=== PATIENT | male | born 1980 | race American Indian/Alaskan Native ===

== ENCOUNTER 2017-03-02 06:30 | Emergency (ER) | payer MEDICAID ==
[2017-03-02 06:40] VITALS: BP 123/77
--- NOTE | 2017-03-02 07:24 | EDM.PDOC ---
ED HPI GENERAL MEDICAL PROBLEM - General Chief Complaint: Back Pain or Injury Stated Complaint: BACK PAIN Time Seen by Provider: 03/02/17 07:03 Source of Information: Reports: Patient, RN Notes Reviewed - History of Present Illness INITIAL COMMENTS - FREE TEXT/NARRATIVE: 36-year-old male injured his back last evening. He was twisting turning and felt sudden onset of pain right lower back. That continues this morning. He has mild discomfort at rest but more severe pain and spasms with motion. Pain does not go down into the leg. No fall or blow to the back. No other unusual symptomatology Middle Back Pain Score (Numeric/FACES): 7 - Related Data Allergies Allergy/AdvReac Type Severity Reaction Status Date / Time aspirin Allergy Nausea Verified 03/02/17 06:40 Home Meds: Home Meds . [No Known Home Meds] 03/02/17 [History] Past Medical History - Past Health History Medical/Surgical History: Denies Medical/Surgical History Social & Family History - Tobacco Use Smoking Status *Q: Never Smoker - Caffeine Use Caffeine Use: Reports: Soda - Recreational Drug Use Recreational Drug Use: No ED ROS GENERAL - Review of Systems Review Of Systems: See Below Constitutional: Reports: No Symptoms HEENT: Reports: No Symptoms Respiratory: Denies: Shortness of Breath, Pleuritic Chest Pain Cardiovascular: Denies: Chest Pain GI/Abdominal: Denies: Abdominal Pain, Nausea, Vomiting : Reports: No Symptoms Musculoskeletal: Reports: Back Pain. Denies: Joint Pain Skin: Reports: No Symptoms Neurological: Denies: Numbness, Tingling ED EXAM,LOWER BACK PAIN/INJURY - Physical Exam Exam: See Below General Appearance: Alert, Mild Distress Throat/Mouth: Normal Inspection Head: Atraumatic Neck: Supple, Full Range of Motion Respiratory/Chest: No Respiratory Distress, Lungs Clear, Normal Breath Sounds Cardiovascular: Regular Rate, Rhythm Back Exam: Paraspinal Tenderness. No: Normal Inspection, CVA Tenderness (L) Extremities: Normal Inspection (Right low back), Normal Range of Motion Neurological: Alert, No Motor/Sensory Deficits, Other (No pain with straight leg raising) Skin Exam: Warm, Dry, Normal Color Course - Vital Signs Last Recorded V/S: Last Vital Signs Temp 97.4 F 03/02/17 06:35 Pulse 50 L 03/02/17 06:35 Resp 16 03/02/17 06:35 BP 123/77 03/02/17 06:35 Pulse Ox 98 03/02/17 06:35 Departure - Departure Time of Disposition: 07:20 Disposition: Home, Self-Care 01 Condition: Fair Clinical Impression: Back strain Qualifiers: Encounter type: initial encounter Qualified Code(s): S39.012A - Strain of muscle, fascia and tendon of lower back, initial encounter - Discharge Information Instructions: Mid-Back Strain With Rehab-SportsMed Referrals: Miriam Perez PA-C [Primary Care Provider] - Forms: ED Department Discharge Additional Instructions: rest back, avoid heavy lifting until discomfort resolving. alternate ice and heat as needed, naprosyn 500 mg twice daily with food, tylenol up to 3 times daily for extra pain relief. Flexeril as needed for muscle spasm and for muscle relaxation. Follow up clinic or Occupational Health if not much better within 2 to 3 days as expected.
== END 2017-03-02 08:10 | disposition home or self-care (01) ==
LOC: JD.ED 06:30
DX: S39.012A Strain of muscle, fascia and tendon of lower back, initial encounter (principal); Z88.6 Allergy status to analgesic agent; X50.9XXA Other and unspecified overexertion or strenuous movements or postures, initial encounter
CPT/HCPCS: 99283

== ENCOUNTER 2017-08-12 11:11 | Day surgery (SDC) | payer MEDICAID ==
[2017-08-12] MEDS ORDERED: Sodium Chloride 0.9% 10 ML Syringe FLUSH PRN (11:31)
[2017-08-12] MEDS ORDERED: Lidocaine 1%/Sod Bicarbonate in NS 8.4% 1 ML Syringe IV PRN (11:31)
[2017-08-12] MEDS ORDERED: Lactated Ringers 1,000 ML IV SCH (11:45)
[2017-08-12] MEDS ORDERED: Iopamidol 612 MG/ML 50 ML SDV ONE (11:54)
[2017-08-12] MEDS ORDERED: Sodium Chloride 0.9% 50 ML SDV ONE (11:54)
[2017-08-12] MEDS ORDERED: Bupivacaine 0.5% 30 ML SDV ONE (11:54)
--- NOTE | 2017-08-12 12:23 | PCM.PREANE ---
Preanesthetic Assessment - Anesthesia/Transfusion/Family Hx Anesthesia History: No Prior Anesthesia Family History of Anesthesia Reaction: No Transfusion History: No Prior Transfusion(s) - Review of Systems General: No Symptoms Pulmonary: No Symptoms Cardiovascular: No Symptoms Gastrointestinal: Abdominal Pain Neurological: No Symptoms Other: Reports: None - Physical Assessment NPO Status Date: 08/11/17 NPO Status Time: 00:00 Pulse: 69 O2 Sat by Pulse Oximetry: 94 Respiratory Rate: 16 Blood Pressure: 137/78 Temperature: 36.9 C Height: 1.75 m Weight: 113 kg ASA Class: 2 Mental Status: Alert & Oriented x3 Dentition: Reports: Broken Tooth/Teeth (right side top) Thyro-Mental Finger Breadths: 3 Mouth Opening Finger Breadths: 3 ROM/Head Extension: Full Lungs: Clear to Auscultation, Normal Respiratory Effort Cardiovascular: Regular Rate, Regular Rhythm - Allergies Allergies/Adverse Reactions: Allergies Allergy/AdvReac Type Severity Reaction Status Date / Time aspirin Allergy Nausea Verified 03/02/17 06:40 - Anesthesia Plan Pre-Op Medication Ordered: None - Acknowledgements Anesthesia Type Planned: General Anesthesia Pt an Appropriate Candidate for the Planned Anesthesia: Yes Alternatives and Risks of Anesthesia Discussed w Pt/Guardian: Yes Pt/Guardian Understands and Agrees with Anesthesia Plan: Yes PreAnesthesia Questionnaire - Past Health History Medical/Surgical History: Denies Medical/Surgical History Gastrointestinal History: Reports: GERD - SUBSTANCE USE Smoking Status *Q: Former Smoker Tobacco Use Within Last Twelve Months: Cigarettes Second Hand Smoke Exposure: No Days Per Week of Alcohol Use: 1 Number of Drinks Per Day: 0 Total Drinks Per Week: 0 Recreational Drug Use History: No - HOME MEDS Home Medications: Home Meds . [No Known Home Meds] 03/02/17 [History] - CURRENT (IN HOUSE) MEDS Current Meds: Current Medications Lactated Ringer's (Ringers, Lactated) 1,000 mls @ 125 mls/hr IV ASDIRECTED NELLIE Stop: 08/12/17 23:00 Lidocaine/Sodium Bicarbonate (Buffered Lidocaine 1% In Ns 8.4%) 0.25 ml IV ONETIME PRN PRN Reason: Prior to IV Start Stop: 08/12/17 18:00 Sodium Chloride (Saline Flush) 10 ml FLUSH ASDIRECTED PRN PRN Reason: Keep Vein Open Stop: 08/12/17 18:00 Discontinued Medications Bupivacaine HCl (Marcaine 0.5%) Confirm Administered Dose 30 ml .ROUTE .STK-MED ONE Stop: 08/12/17 11:55 Iopamidol (Isovue-300 (61%)) Confirm Administered Dose 50 ml .ROUTE .STK-MED ONE Stop: 08/12/17 11:55 Sodium Chloride (Normal Saline) Confirm Administered Dose 100 ml .ROUTE .STK- MED ONE Stop: 08/12/17 11:55
[2017-08-12] MEDS ORDERED: Ondansetron 4 MG/2 ML SDV ONE (12:47)
[2017-08-12] MEDS ORDERED: Midazolam 1 MG/ML 2 ML SDV ONE (12:47)
[2017-08-12] MEDS ORDERED: fentaNYL 250 MCG/5 ML SDV ONE (12:47)
[2017-08-12] MEDS ORDERED: Lidocaine 1% 4 ML ONE (12:47)
[2017-08-12] MEDS ORDERED: Rocuronium 50 MG/5 ML Vial ONE (12:47)
[2017-08-12] MEDS ORDERED: Propofol 200 MG/20 ML SDV ONE (12:47)
[2017-08-12] MEDS ORDERED: ceFAZolin 1 GM Vial ONE (12:48)
[2017-08-12] MEDS ORDERED: HYDROmorphone 1 MG/ML Syringe ONE (14:17)
[2017-08-12] MEDS ORDERED: Dexamethasone 4 MG/ML 5 ML MDV ONE (14:23)
[2017-08-12] MEDS ORDERED: Lactated Ringers 1,000 ML ONE (14:45)
[2017-08-12] MEDS ORDERED: fentaNYL 100 MCG/2 ML SDV ONE (15:08)
--- NOTE | 2017-08-12 15:38 | PCM.OPNOTE ---
- General Post-Op/Procedure Note Date of Surgery/Procedure: 08/12/17 Operative Procedure(s): lap gera with ioc Pre Op Diagnosis: cholelithiasis Post-Op Diagnosis: Same Anesthesia Technique: General ET Tube Primary Surgeon: Ralph Benedict EBL in mLs: 15 Complications: None Condition: Good
[2017-08-12] MEDS ORDERED: fentaNYL 250 MCG/5 ML SDV IVPUSH PRN (15:46)
[2017-08-12] MEDS ORDERED: HYDROmorphone 0.5 MG/0.5 ML Syringe IVPUSH PRN (15:46)
--- NOTE | 2017-08-12 15:48 | PCM.POSTAN ---
POST ANESTHESIA ASSESSMENT - MENTAL STATUS Mental Status: Somnolent - VITAL SIGNS Pulse Rate: 82 SaO2: 91 Resp Rate: 18 Blood Pressure: 144/91 Temperature: 37.7 C - RESPIRATORY Respiratory Status: Respiratory Rate WNL, Airway Patent, O2 Saturation Stable, Supplemental Oxygen - CARDIOVASCULAR CV Status: Pulse Rate WNL, Blood Pressure Stable - GASTROINTESTINAL GI Status: No Symptoms - PAIN Pain Score: 0 - POST OP HYDRATION Hydration Status: Adequate & Stable - OBSERVATIONS Free Text/Narrative:: no anesthesia complications noted
[2017-08-12] MEDS ORDERED: Acetaminophen/oxyCODONE 325-5 MG Tab PO PRN (16:51)
[2017-08-12 17:47] VITALS: BP 134/84
--- NOTE | 2017-08-13 06:44 | OR ---
DATE OF OPERATION: 08/12/2017 SURGEON: Ralph Benedict MD PREOPERATIVE DIAGNOSIS: Cholelithiasis. POSTOPERATIVE DIAGNOSIS: Cholelithiasis. OPERATION PERFORMED: Laparoscopic cholecystectomy, intraoperative cholangiogram done under general anesthetic. ESTIMATED BLOOD LOSS: 15 mL. FINDINGS: Stones in the gallbladder, common duct. Intraoperative cholangiogram showed dye running into the duodenum without obstruction of the right and left hepatic duct and normal common duct with no leakage. DESCRIPTION OF PROCEDURE: The patient was taken to the operating room, placed in a supine position, given a general anesthetic and intubated. Antibiotics were given. SCDs were placed. The abdomen was prepped with chlorhexidine, prepped and draped off in a sterile fashion. Incision was made just below the umbilicus, and using an Optiport, the abdominal cavity was entered. A 5 mm trocar was used and pneumoperitoneum established and a 0 degree camera was inserted showing a gallbladder in the right upper quadrant, but the angle was not sufficient to really safely do a gallbladder. This was corrected by first putting the epigastric port and using a 10 mm port, then looking backwards with our camera, put a port higher up in the midline. Another 5 mm port was placed in the right upper quadrant and one in the right lower quadrant. Using a 0 degree camera at first, the fundus of the gallbladder was retracted in a cephalad way. The patient replaced in reverse Trendelenburg, leftward tilt and Telly pouch was dissected out. We retracted in a caudal fashion. This 0 degree camera was then changed out for a 30 degree 5 mm camera which gave a better view and the cystic duct Telly pouch junction was identified. This was secured with a clip. An incision was made in the cystic duct and a cholangiocatheter was then placed and secured with clips and a cholangiogram was then obtained using contrast material diluted with equal parts of saline, and on the C-arm, this showed the above findings. Cholangiocatheter was removed. Two clips were placed in the cystic duct. The cystic duct was cut. Attempt to place an Endoloop on this were not successful. Gallbladder was then dissected from its attachments to the liver with electrocautery and placed in the Endobag and removed from the abdominal cavity. Camera was reinserted. The area was irrigated and checked, excellent hemostasis. This completed the intraabdominal portion of the procedure. The skin of each port closed with subdermal 4-0 Dexon suture. Steri-Strips and sterile dressing placed. The patient tolerated the procedure and sent to the recovery room in a stable condition. ANESTHESIA: MMISH /[id number]
--- NOTE | 2017-08-13 07:31 | CR ---
Operative cholangiogram: Single spot view was obtained during operative cholangiogram study. No gross filling defects are seen. Caliber of the ducts appear normal. Impression: 1. Single fluoroscopic spot view shows no discrete abnormality on operative cholangiogram study. Please correlate with findings on fluoroscopic exam. Diagnostic code #1
== END 2017-08-12 18:10 | disposition home or self-care (01) ==
LOC: JD.SDS 11:11
PROVIDERS: ATTEND Surgery
DX: K80.10 Calculus of gallbladder with chronic cholecystitis without obstruction (principal); Z88.8 Allergy status to other drugs, medicaments and biological substances; F17.210 Nicotine dependence, cigarettes, uncomplicated
CPT/HCPCS: 47563; 74300; J0690; J1100; J1170; J2250; J2405; J3010; J7120; Q9967; 00790; J2704

== ENCOUNTER 2024-06-05 09:41 | Inpatient (IN) | payer MEDICAID, OTHER ==
[2024-06-05] MEDS: Sodium Chloride 0.9% 10 ML Syringe FLUSH PRN (10:31)
[2024-06-05] MEDS: Sodium Chloride 0.9% 1,000 ML IV ONE ×3 (10:31→12:59)
[2024-06-05 10:41] LABS: HEMATOCRIT 51.3 % (42.0-52.0); MEAN CORPUSCULAR HGB CONC 33.1 g/dl (32.0-36.0); MEAN CORPUSCULAR VOLUME 81.4 fl (83.0-99.0); NRBC ABSOLUTE 0.04 (0.00-0.02); NRBC PERCENT 0.3 % (0.0-0.2); PLATELET COUNT,PLT 483 K/mm3 (150-400)
[2024-06-05 10:48] LABS: INR 0.99; PROTHROMBIN TIME 10.5 SECONDS (9.7-12.0)
[2024-06-05 10:58] LABS: A/G RATIO 0.9 (1-2); BILIRUBIN TOTAL 0.7 mg/dL (0.2-1.0); BUN/CREATININE RATIO 14.7 (14-18); C-REACTIVE PROTEIN 13.11 mg/dL (<0.30); CALCIUM 9.6 mg/dL (8.5-10.1); EST CRCL DRUG DOSING (CG) 31.42 mL/min; POTASSIUM,K 5.6 mEq/L (3.5-5.1); PROTEIN TOTAL,TP 8.7 g/dl (6.4-8.2)
[2024-06-05 11:21] LABS: BAND PERCENT MAN 4 % (0-10); BASOPHILS PERCENT MAN 0 (0.2-1.2); EOSINOPHILS PERCENT MAN 1 % (0.8-7.0); LYMPHOCYTES % ATYPICAL MANUAL 0 %; LYMPHOCYTES PERCENT MAN 1 % (20-40); MONOCYTES PERCENT MAN 2 % (2-10)
[2024-06-05] MEDS: cefTRIAXone 2 GM in Sodium Chloride 0.9% 100 ML IV ONE (11:22)
[2024-06-05 11:23] LABS: PLATELET COUNT ESTIMATE INCREASED
[2024-06-05] MEDS: Iopamidol 612 MG/ML 100 ML Bottle IVPUSH ONE (11:23)
[2024-06-05 11:25] LABS: ANION GAP 38.6 (5-15); LACTIC ACID 5.5 mmol/L (0.4-2.0)
[2024-06-05] MEDS: Insulin Regular in 0.9 % NACL 100 ML IV SCH (11:36)
[2024-06-05] MEDS: Sodium Bicarbonate 8.4% 50 MEQ/50 ML Syringe IVPUSH ONE (12:27)
[2024-06-05 12:34] LABS: APPEARANCE,URINE CLEAR (Clear); BILIRUBIN,URINE 1+ (Negative); COLOR,URINE YELLOW (Yellow); GLUCOSE,URINE 2+ (Negative); KETONES,URINE 4+ (Negative); LEUKOCYTE ESTERASE,URINE NEGATIVE (Negative); NITRITE,URINE NEGATIVE (Negative); OCCULT BLOOD,URINE 2+ (Negative); PROTEIN,URINE 2+ (Negative); UROBILINOGEN,URINE 0.2 (0.2-1.0)
[2024-06-05 13:01] LABS: BACTERIA,URINE NOT SEEN /hpf (FEW); MUCUS,URINE NOT SEEN /hpf (FEW); SQUAMOUS EPITHELIAL CELLS,UR 0-5 /hpf (0-5); WBC,URINE 0-5 /hpf (0-5)
[2024-06-05] MEDS: Sodium Chloride 0.9% 1,000 ML IV SCH (13:37)
[2024-06-05 14:13] LABS: CALCIUM 9.5 mg/dL (8.5-10.1); CREATININE 2.2 mg/dL (0.7-1.3); EST CRCL DRUG DOSING (CG) 42.85 mL/min; PHOSPHORUS 4.5 mg/dL (2.6-4.7); POTASSIUM,K 5.5 mEq/L (3.5-5.1)
[2024-06-05 14:15] LABS: ANION GAP 36.5 (5-15)
[2024-06-05 14:21] LABS: HEMOGLOBIN A1C 11.8 %
[2024-06-05 16:38] LABS: ANION GAP 29.7 (5-15); BUN/CREATININE RATIO 22.9 (14-18); CALCIUM 9.2 mg/dL (8.5-10.1); CREATININE 1.7 mg/dL (0.7-1.3); EST CRCL DRUG DOSING (CG) 55.45 mL/min; POTASSIUM,K 3.7 mEq/L (3.5-5.1)
[2024-06-05] MEDS: Potassium Chloride 10 MEQ in Premix Bag 1 BAG IV SCH ×2 (17:28→18:46)
[2024-06-05] MEDS: metroNIDAZOLE/Normal Saline 500 MG in Premix Bag 1 BAG IV SCH (17:28)
[2024-06-05 18:26] LABS: ANION GAP 23.8 (5-15); BUN/CREATININE RATIO 22.5 (14-18); CALCIUM 9.2 mg/dL (8.5-10.1); CREATININE 1.6 mg/dL (0.7-1.3); EST CRCL DRUG DOSING (CG) 58.92 mL/min; PHOSPHORUS 1.2 mg/dL (2.6-4.7); POTASSIUM,K 3.8 mEq/L (3.5-5.1)
[2024-06-05] MEDS ORDERED: Potassium Chloride 10 MEQ in Premix Bag 1 BAG IV SCH (18:45)
[2024-06-05] MEDS: Dextrose 5%-0.45% NaCl 1,000 ML IV SCH (19:29)
[2024-06-05 22:25] LABS: ANION GAP 20.7 (5-15); BUN/CREATININE RATIO 22.1 (14-18); CALCIUM 9.1 mg/dL (8.5-10.1); CREATININE 1.4 mg/dL (0.7-1.3); EST CRCL DRUG DOSING (CG) 67.33 mL/min; PHOSPHORUS 1.2 mg/dL (2.6-4.7); POTASSIUM,K 3.7 mEq/L (3.5-5.1)
[2024-06-05] MEDS: Potassium Chloride 10 MEQ in Premix Bag 1 BAG IV ONE (23:35)
[2024-06-06] MEDS: Ondansetron 4 MG/2 ML SDV IV PRN (00:09)
[2024-06-06 02:31] LABS: ANION GAP 17.4 (5-15); BUN/CREATININE RATIO 21.7 (14-18); CREATININE 1.2 mg/dL (0.7-1.3); EST CRCL DRUG DOSING (CG) 78.56 mL/min; PHOSPHORUS 1.1 mg/dL (2.6-4.7); POTASSIUM,K 3.4 mEq/L (3.5-5.1)
[2024-06-06] MEDS: Potassium Chloride 10 MEQ in Premix Bag 1 BAG IV ONE (04:27)
[2024-06-06] MEDS: Potassium Chloride 10 MEQ in Premix Bag 1 BAG IV SCH (06:01)
[2024-06-06 06:20] LABS: BASOPHILS PERCENT AUTO 0.2 % (0.0-1.0); HEMATOCRIT 40.7 % (42.0-52.0); IMMATURE GRAN ABSOLUTE AUTO 0.05 K/mm3 (0.00-0.05); IMMATURE GRAN PERCENT AUTO 0.4 % (0.0-0.4); LYMPHOCYTES ABSOLUTE AUTO 1.1 K/mm3 (1.0-4.8); LYMPHOCYTES PERCENT AUTO 9.5 % (24.0-44.0); MEAN CORPUSCULAR HEMOGLOBIN 26.9 pg (28.0-32.0); MEAN CORPUSCULAR HGB CONC 35.4 g/dl (32.0-36.0); MONOCYTES ABSOLUTE AUTO 1.1 K/mm3 (0.0-0.8); MONOCYTES PERCENT AUTO 8.9 % (0.0-8.0); NEUTROPHILS ABSOLUTE AUTO 9.7 K/mm3 (1.8-7.7); RED BLOOD CELL COUNT 5.35 M/mm3 (4.52-5.90); WHITE BLOOD CELL COUNT,WBC 11.95 K/mm3 (3.9-11.3)
[2024-06-06 06:24] LABS: HEMOGLOBIN 14.4 gm/dl (14.0-18.0); MEAN CORPUSCULAR VOLUME 76.1 fl (83.0-99.0); PLATELET COUNT,PLT 313 K/mm3 (150-400)
[2024-06-06 06:40] LABS: ANION GAP 17.5 (5-15); BUN/CREATININE RATIO 19.2 (14-18); CALCIUM 9.3 mg/dL (8.5-10.1); CREATININE 1.2 mg/dL (0.7-1.3); EST CRCL DRUG DOSING (CG) 78.56 mL/min; PHOSPHORUS 1.3 mg/dL (2.6-4.7); POTASSIUM,K 3.5 mEq/L (3.5-5.1)
[2024-06-06] MEDS: Acetaminophen 325 MG Tab PO PRN (07:52)
[2024-06-06] MEDS: Enoxaparin 40 MG/0.4 ML Syringe SUBCUT SCH (08:02)
[2024-06-06] MEDS: oxyCODONE 5 MG Tab PO PRN (09:11)
[2024-06-06] MEDS: cefTRIAXone 2 GM in Sodium Chloride 0.9% 100 ML IV SCH (09:37)
[2024-06-06] MEDS: Potassium Phosphates 30 MMOLE in Sodium Chloride 0.9% 500 ML IV ONE (10:18)
[2024-06-06 10:58] LABS: ANION GAP 15.7 (5-15); BUN/CREATININE RATIO 19.1 (14-18); CREATININE 1.1 mg/dL (0.7-1.3); EST CRCL DRUG DOSING (CG) 85.7 mL/min; PHOSPHORUS 1.4 mg/dL (2.6-4.7); POTASSIUM,K 3.7 mEq/L (3.5-5.1)
[2024-06-06 14:44] LABS: ANION GAP 13.5 (5-15); CALCIUM 8.6 mg/dL (8.5-10.1); EST CRCL DRUG DOSING (CG) 94.27 mL/min; PHOSPHORUS 2.4 mg/dL (2.6-4.7); POTASSIUM,K 3.5 mEq/L (3.5-5.1)
[2024-06-06] MEDS: Insulin Glargine,Human Rec. Analog 100 Units/ML 3 ML Pen SUBCUT SCH (15:39)
[2024-06-06] MEDS: Insulin Lispro 100 Unit/ML 3 ML KwikPen SUBCUT SCH (17:24)
[2024-06-07 04:28] LABS: BASOPHILS PERCENT AUTO 0.4 % (0.0-1.0); EOSINOPHILS PERCENT AUTO 0.5 % (0.0-6.0); HEMATOCRIT 35.6 % (42.0-52.0); HEMOGLOBIN 12.7 gm/dl (14.0-18.0); IMMATURE GRAN ABSOLUTE AUTO 0.02 K/mm3 (0.00-0.05); IMMATURE GRAN PERCENT AUTO 0.2 % (0.0-0.4); LYMPHOCYTES ABSOLUTE AUTO 2.3 K/mm3 (1.0-4.8); LYMPHOCYTES PERCENT AUTO 28.2 % (24.0-44.0); MEAN CORPUSCULAR HEMOGLOBIN 27.4 pg (28.0-32.0); MEAN CORPUSCULAR HGB CONC 35.7 g/dl (32.0-36.0); MEAN CORPUSCULAR VOLUME 76.7 fl (83.0-99.0); MEAN PLATELET VOLUME 10.1 fl (9.4-12.4); MONOCYTES ABSOLUTE AUTO 0.6 K/mm3 (0.0-0.8); MONOCYTES PERCENT AUTO 7.5 % (0.0-8.0); NEUTROPHILS ABSOLUTE AUTO 5.2 K/mm3 (1.8-7.7); NEUTROPHILS PERCENT AUTO 63.2 % (41.0-71.0); PLATELET COUNT,PLT 261 K/mm3 (150-400); RED BLOOD CELL COUNT 4.64 M/mm3 (4.52-5.90); WHITE BLOOD CELL COUNT,WBC 8.29 K/mm3 (3.9-11.3)
[2024-06-07 05:08] LABS: ANION GAP 14.2 (5-15); BUN/CREATININE RATIO 17.5 (14-18); C-REACTIVE PROTEIN 3.01 mg/dL (<0.30); CALCIUM 8.5 mg/dL (8.5-10.1); CREATININE 0.8 mg/dL (0.7-1.3); EST CRCL DRUG DOSING (CG) 117.83 mL/min; MAGNESIUM 1.9 mg/dL (1.8-2.4); PHOSPHORUS 2.4 mg/dL (2.6-4.7); POTASSIUM,K 3.2 mEq/L (3.5-5.1)
[2024-06-07 06:49] LABS: APPEARANCE,URINE SLT CLOUDY (Clear); BILIRUBIN,URINE 1+ (Negative); COLOR,URINE YELLOW (Yellow); GLUCOSE,URINE 2+ (Negative); KETONES,URINE 4+ (Negative); LEUKOCYTE ESTERASE,URINE NEGATIVE (Negative); NITRITE,URINE NEGATIVE (Negative); OCCULT BLOOD,URINE NEGATIVE (Negative); PH,URINE 6.5 (5.0-8.0); PROTEIN,URINE 1+ (Negative); UROBILINOGEN,URINE 0.2 (0.2-1.0)
[2024-06-07 07:02] LABS: AMORPHOUS SEDIMENT,URINE FEW /hpf (NOT SEEN); BACTERIA,URINE FEW /hpf (FEW); EPITHELIAL CELLS,URINE 0-5 /hpf (0-5); MUCUS,URINE FEW /hpf (FEW); RBC,URINE 0-5 /hpf (0-5); WBC,URINE 0-5 /hpf (0-5)
[2024-06-07] MEDS: Nystatin Crm 30 GM Tube TOP SCH (10:00)
[2024-06-07] MEDS: Potassium Chloride 20 MEQ Tab.ER PO SCH (10:01)
[2024-06-07] MEDS: Insulin Glargine,Human Rec. Analog 100 Units/ML 3 ML Pen SUBCUT STA (14:18)
[2024-06-07] MEDS: metroNIDAZOLE/Normal Saline 500 MG in Premix Bag 1 BAG IV ONE ×2 (17:27→23:15)
[2024-06-08 04:52] LABS: BASOPHILS PERCENT AUTO 0.3 % (0.0-1.0); EOSINOPHILS ABSOLUTE AUTO 0.1 K/mm3 (0.0-0.4); EOSINOPHILS PERCENT AUTO 1.2 % (0.0-6.0); HEMATOCRIT 36.7 % (42.0-52.0); HEMOGLOBIN 12.7 gm/dl (14.0-18.0); IMMATURE GRAN ABSOLUTE AUTO 0.03 K/mm3 (0.00-0.05); IMMATURE GRAN PERCENT AUTO 0.4 % (0.0-0.4); LYMPHOCYTES ABSOLUTE AUTO 2.5 K/mm3 (1.0-4.8); MEAN CORPUSCULAR HEMOGLOBIN 26.7 pg (28.0-32.0); MEAN CORPUSCULAR HGB CONC 34.6 g/dl (32.0-36.0); MEAN CORPUSCULAR VOLUME 77.1 fl (83.0-99.0); MEAN PLATELET VOLUME 9.9 fl (9.4-12.4); MONOCYTES ABSOLUTE AUTO 0.6 K/mm3 (0.0-0.8); MONOCYTES PERCENT AUTO 8.7 % (0.0-8.0); NEUTROPHILS ABSOLUTE AUTO 3.5 K/mm3 (1.8-7.7); NEUTROPHILS PERCENT AUTO 52.4 % (41.0-71.0); PLATELET COUNT,PLT 245 K/mm3 (150-400); RED BLOOD CELL COUNT 4.76 M/mm3 (4.52-5.90); WHITE BLOOD CELL COUNT,WBC 6.76 K/mm3 (3.9-11.3)
[2024-06-08 05:25] LABS: ANION GAP 11.9 (5-15); BUN/CREATININE RATIO 17.1 (14-18); CALCIUM 8.9 mg/dL (8.5-10.1); CREATININE 0.7 mg/dL (0.7-1.3); EST CRCL DRUG DOSING (CG) 134.67 mL/min; POTASSIUM,K 2.9 mEq/L (3.5-5.1)
[2024-06-08] MEDS: metroNIDAZOLE/Normal Saline 500 MG in Premix Bag 1 BAG IV ONE (05:35)
[2024-06-08] MEDS: cefTRIAXone 2 GM in Sodium Chloride 0.9% 100 ML IV SCH (05:36)
[2024-06-08] MEDS: Insulin Glargine,Human Rec. Analog 100 Units/ML 3 ML Pen SUBCUT SCH (07:06)
[2024-06-08] MEDS: Potassium Chloride 20 MEQ Tab.ER PO ONE (07:06)
[2024-06-08 07:44] VITALS: BP 130/79; PULSE 71
== END 2024-06-08 07:30 | disposition home or self-care (01) | DRG 638 ==
LOC: JD.ED 09:41 → JD.ICU 12:17
PROVIDERS: ADMIT Family Medicine; ATTEND Internal Medicine
DX: E10.10 Type 1 diabetes mellitus with ketoacidosis without coma (principal); L03.211 Cellulitis of face; N17.9 Acute kidney failure, unspecified; E86.0 Dehydration; Z88.8 Allergy status to other drugs, medicaments and biological substances; Z79.899 Other long term (current) drug therapy; K21.9 Gastro-esophageal reflux disease without esophagitis
CPT/HCPCS: 36415; 70487; 70487-26; 71045; 71045-26; 80048; 80053; 81001; 82800; 82947; 83036; 83605; 83735; 83930; 84100; 85007; 85025; 85027; 85610; 86140; 87040; 93005; 93010; 96361; 96365; 99223; 99285; 99285-25; A9270-GY; J0696; J1650; J1815; J1815-GY; J1836; J2405; J3480; J3490; J7030; J7040; J7799; Q9967